=== PATIENT | male | born 1960 | race Caucasian/White ===

== ENCOUNTER 2019-04-06 05:22 | Day surgery (SDC) | payer BC ==
[2019-04-06] MEDS ORDERED: CEFAZOLIN 1 GM INJ (07:03)
[2019-04-06] MEDS ORDERED: PROPOFOL 20 ML (07:03)
[2019-04-06] MEDS ORDERED: LIDOCAINE 100 MG SYRINGE (07:03)
[2019-04-06] MEDS ORDERED: FENTAnyl 50 MCG/ML VIAL ×2 (07:04→09:14)
[2019-04-06] MEDS ORDERED: MIDAZOLAM 1 MG/ML 2 ML INJ (07:04)
[2019-04-06] MEDS ORDERED: ROPIVACAINE 0.5 % 30 ML VIAL (07:07)
[2019-04-06] MEDS ORDERED: ONDANSETRON 4 MG INJ (08:04)
[2019-04-06] MEDS ORDERED: DEXAMETHASONE 4 MG/ML 5 ML INJ (08:05)
[2019-04-06] MEDS ORDERED: OXYCODONE/ACETAMINOPHEN (5/325) TAB PO ×2 (08:30→12:00)
[2019-04-06] MEDS ORDERED: ONDANSETRON 4 MG INJ IV ×2 (08:30→12:00)
[2019-04-06] MEDS ORDERED: MEPERIDINE 25 MG INJ IV (08:30)
[2019-04-06] MEDS ORDERED: HYDROmorphONE 1 MG/5 ML IV SYRINGE IV ×3 (08:30)
[2019-04-06] MEDS ORDERED: DIPHENHYDRAMINE 50 MG INJ IV (08:30)
[2019-04-06] MEDS ORDERED: SUGAMMADEX SODIUM 200 MG/2 ML VIAL IV (10:12)
[2019-04-06] MEDS ORDERED: ROCURONIUM 50 MG INJ (10:12)
[2019-04-06] MEDS: POLYMYXIN/BACITRACIN 1L IRRIG (10:19)
[2019-04-06] MEDS: ROPIVACAINE 0.5 % 30 ML VIAL (10:19)
[2019-04-06] MEDS: POVIDONE IODINE 10% 28.4 GM OINT (10:19)
[2019-04-06] MEDS ORDERED: SOD CHLORIDE 0.9% 1,000 ML IV (11:45)
[2019-04-06] MEDS ORDERED: morphine 2 MG INJ IV (12:00)
[2019-04-06] MEDS: OXYCODONE/ACETAMINOPHEN (5/325) TAB PO (13:06)
== END 2019-04-06 14:25 | disposition home or self-care (01) ==
LOC: SDS 05:22
DX: M13.872 Other specified arthritis, left ankle and foot (principal); M24.072 Loose body in left ankle
CPT/HCPCS: 29898; 73610